=== PATIENT | female | born 1990 | race Caucasian/White ===

== ENCOUNTER 2019-04-27 23:44 | Emergency (ER) | payer OTHER ==
[~2019-04-27] VITALS: Ht 162.6 cm; Wt 61.2 kg
[2019-04-27 23:49] VITALS: BP 119/85
[2019-04-28] MEDS ORDERED: OLANZAPINE 5 MG/TAB.RAPDIS ONE (00:21)
[2019-04-28] MEDS ORDERED: OLANZAPINE 5 MG/TAB.RAPDIS PO ONE (00:30)
== END 2019-04-28 00:31 | disposition home or self-care (01) ==
LOC: ER 23:58
DX: F20.9 Schizophrenia, unspecified (principal); F10.10 Alcohol abuse, uncomplicated; Y90.9 Presence of alcohol in blood, level not specified